=== PATIENT | female | born 1990 | race Hispanic/Latino ===

== ENCOUNTER → 2023-05-20 15:18 | Outpatient (REF) | payer OTHER, SELFPAY | LOC: PNTC 15:18 | PROVIDERS: ATTENDING PHYSICIAN Obstetrics & Gynecology | DX: Z36.0 Encounter for antenatal screening for chromosomal anomalies (principal) | CPT/HCPCS: 76801; 76813 ==

== ENCOUNTER → 2023-06-15 15:05 | Outpatient (REF) | payer OTHER, SELFPAY | LOC: PNTC 15:05 | PROVIDERS: ATTENDING PHYSICIAN Obstetrics & Gynecology | DX: O99.210 Obesity complicating pregnancy, unspecified trimester (principal) | CPT/HCPCS: 76805 ==

== ENCOUNTER → 2023-07-15 11:04 | Outpatient (REF) | payer OTHER, SELFPAY | LOC: PNTC 11:04 | PROVIDERS: ATTENDING PHYSICIAN Obstetrics & Gynecology | DX: O99.210 Obesity complicating pregnancy, unspecified trimester (principal) | CPT/HCPCS: 76811 ==

== ENCOUNTER → 2023-08-24 11:13 | Outpatient (REF) | payer OTHER, SELFPAY | LOC: PNTC 11:13 | PROVIDERS: ATTENDING PHYSICIAN Obstetrics & Gynecology | DX: O99.210 Obesity complicating pregnancy, unspecified trimester (principal); O66.0 Obstructed labor due to shoulder dystocia | CPT/HCPCS: 76816 ==

== ENCOUNTER → 2023-10-05 11:21 | Outpatient (REF) | payer OTHER, SELFPAY | LOC: PNTC 11:21 | PROVIDERS: ATTENDING PHYSICIAN Obstetrics & Gynecology | DX: O99.210 Obesity complicating pregnancy, unspecified trimester (principal); O66.0 Obstructed labor due to shoulder dystocia | CPT/HCPCS: 76816 ==

== ENCOUNTER → 2023-10-26 10:29 | Outpatient (REF) | payer OTHER, SELFPAY ==
[2023-10-26 11:16] LABS: % Basophils 0.4 % (0-2); % Eosinophils 2.4 % (0-6); % Immature Granulocytes 1.1 % (0-0.5); % Lymphocytes 22.9 % (20.5-51.1); % Monocytes 8.1 % (1.7-9.3); % Neutrophils 65.1 % (42.2-75.2); Absolute Eosinophils 0.2 10^3/uL (0-0.7); Absolute Immature Granulocytes 0.1 10^3/uL (0-0.05); Absolute Lymphocytes 1.7 10^3/uL (1.2-3.4); Absolute Monocytes 0.6 10^3/uL (0.1-0.6); Absolute Neutrophils 4.8 10^3/uL (1.4-6.5); Hematocrit 28.9 % (37.0-47.0); Hemoglobin 9.6 g/dL (12.0-16.0); Mean Corp Hgb Conc. 33.2 g/dL (33.0-37.0); Mean Corpuscular Hgb 26.8 pg (27.0-31.0); Mean Corpuscular Volume 80.7 fL (81.0-99.0); Mean Platelet Volume 10.8 fL (7.4-10.4); Nucleated Red Blood Cells % 0 %; Platelet Count 235 10^3/uL (130-400); Red Blood Cell Count 3.58 10^6/uL (4.20-5.40); Red Cell Dist. Width 13.5 % (11.5-14.5); White Blood Cell Count 7.4 10^3/uL (4.8-10.8)
== END ==
LOC: OIDL 10:29
PROVIDERS: ATTENDING PHYSICIAN Internal Medicine Hematology & Oncology
DX: D50.9 Iron deficiency anemia, unspecified (principal); D51.9 Vitamin B12 deficiency anemia, unspecified; O99.019 Anemia complicating pregnancy, unspecified trimester
CPT/HCPCS: 85025

== ENCOUNTER → 2023-10-29 08:49 | Outpatient (REF) | payer OTHER, SELFPAY ==
[2023-10-29 09:02] LABS: % Basophils 0.3 % (0-2); % Eosinophils 1.7 % (0-6); % Immature Granulocytes 1.4 % (0-0.5); % Lymphocytes 20.6 % (20.5-51.1); % Monocytes 6.5 % (1.7-9.3); % Neutrophils 69.5 % (42.2-75.2); Absolute Eosinophils 0.1 10^3/uL (0-0.7); Absolute Immature Granulocytes 0.1 10^3/uL (0-0.05); Absolute Lymphocytes 1.5 10^3/uL (1.2-3.4); Absolute Monocytes 0.5 10^3/uL (0.1-0.6); Absolute Neutrophils 4.9 10^3/uL (1.4-6.5); Hematocrit 29.5 % (37.0-47.0); Hemoglobin 9.9 g/dL (12.0-16.0); Mean Corp Hgb Conc. 33.6 g/dL (33.0-37.0); Mean Corpuscular Hgb 27.3 pg (27.0-31.0); Mean Corpuscular Volume 81.3 fL (81.0-99.0); Mean Platelet Volume 10.5 fL (7.4-10.4); Nucleated Red Blood Cells % 0 %; Platelet Count 215 10^3/uL (130-400); Red Blood Cell Count 3.63 10^6/uL (4.20-5.40); White Blood Cell Count 7.1 10^3/uL (4.8-10.8)
== END ==
LOC: OIDL 08:49
PROVIDERS: ATTENDING PHYSICIAN Internal Medicine Hematology & Oncology
DX: D50.9 Iron deficiency anemia, unspecified (principal); O99.019 Anemia complicating pregnancy, unspecified trimester; D51.9 Vitamin B12 deficiency anemia, unspecified
CPT/HCPCS: 85025

== ENCOUNTER → 2023-11-12 07:11 | Outpatient (REF) | payer OTHER, SELFPAY | LOC: PNTC 07:11 | PROVIDERS: ATTENDING PHYSICIAN Obstetrics & Gynecology | DX: O99.210 Obesity complicating pregnancy, unspecified trimester (principal); O66.0 Obstructed labor due to shoulder dystocia | CPT/HCPCS: 76816 ==

== ENCOUNTER 2023-11-20 16:49 | Inpatient (IN) | payer OTHER, SELFPAY ==
[2023-11-20] MEDS: LR 1000 IV ×2 (17:30→21:36)
[2023-11-20 17:36] LABS: % Basophils 0.3 % (0-2); % Eosinophils 1.3 % (0-6); % Immature Granulocytes 0.6 % (0-0.5); % Lymphocytes 18.5 % (20.5-51.1); % Monocytes 5.8 % (1.7-9.3); % Neutrophils 73.5 % (42.2-75.2); Absolute Eosinophils 0.1 10^3/uL (0-0.7); Absolute Lymphocytes 1.2 10^3/uL (1.2-3.4); Absolute Monocytes 0.4 10^3/uL (0.1-0.6); Absolute Neutrophils 4.7 10^3/uL (1.4-6.5); Hematocrit 33.8 % (37.0-47.0); Hemoglobin 11.7 g/dL (12.0-16.0); Mean Corp Hgb Conc. 34.6 g/dL (33.0-37.0); Mean Corpuscular Hgb 28.6 pg (27.0-31.0); Mean Corpuscular Volume 82.6 fL (81.0-99.0); Mean Platelet Volume 10.3 fL (7.4-10.4); Nucleated Red Blood Cells % 0 %; Platelet Count 181 10^3/uL (130-400); Red Blood Cell Count 4.09 10^6/uL (4.20-5.40); Red Cell Dist. Width 18.8 % (11.5-14.5); White Blood Cell Count 6.4 10^3/uL (4.8-10.8)
[2023-11-20 17:45] VITALS: BP 121/74; BMI 32.0
[2023-11-20] MEDS: CYTOTEC 25 MICROGRAM VAG (18:22)
[2023-11-20] MEDS: CYTOTEC 50 MICROGRAM PO (22:16)
[2023-11-21] MEDS: CYTOTEC 50 MICROGRAM PO (02:27)
[2023-11-21] MEDS: LR 1000 IV ×2 (03:19→06:23)
[2023-11-21] MEDS: SUBLIMAZE 100 MCG EPIDURAL (05:55)
[2023-11-21] MEDS: FENTANYL/BUPIVACAINE 100 EPIDURAL (05:56)
[2023-11-21] MEDS: CYTOTEC PO (06:36)
[2023-11-21] MEDS: MOTRIN 600 MG PO (18:38)
[2023-11-21] MEDS: TYLENOL 650 MG PO (18:38)
[2023-11-22] MEDS: MOTRIN 600 MG PO ×3 (00:53→16:52)
[2023-11-22] MEDS: TYLENOL 650 MG PO ×3 (00:53→16:51)
[2023-11-22 05:22] LABS: Hematocrit 34.5 % (37.0-47.0); Hemoglobin 11.6 g/dL (12.0-16.0)
[2023-11-22] MEDS: PRENATAL PLUS 1 TABLET PO (08:33)
[2023-11-22] MEDS: SENOKOT-S 1 TABLET PO (08:33)
[2023-11-23] MEDS: MOTRIN 600 MG PO ×2 (00:23→08:27)
[2023-11-23] MEDS: TYLENOL 650 MG PO ×2 (00:23→08:27)
[2023-11-23] MEDS: PRENATAL PLUS 1 TABLET PO (08:24)
[2023-11-24 15:22] LABS: Syphilis/T. pallidum Ab Reflex Negative (Negative)
== END 2023-11-23 12:15 | disposition home or self-care (01) | DRG 807 ==
LOC: LDRP 16:49
PROVIDERS: Obstetrics & Gynecology; ADMITTING PHYSICIAN Obstetrics & Gynecology
PROC: 4A1HXCZ Monitoring of Products of Conception, Cardiac Rate, External Approach (ICD-10-PCS; 2023-11-20)
PROC: 10E0XZZ Delivery of Products of Conception, External Approach (ICD-10-PCS; 2023-11-20)
PROC: 3E0P7VZ Introduction of Hormone into Female Reproductive, Via Natural or Artificial Opening (ICD-10-PCS; 2023-11-20)
PROC: 10907ZC Drainage of Amniotic Fluid, Therapeutic from Products of Conception, Via Natural or Artificial Opening (ICD-10-PCS; 2023-11-20)
PROC: 3E0234Z Introduction of Serum, Toxoid and Vaccine into Muscle, Percutaneous Approach (ICD-10-PCS; 2023-11-23)
DX: O36.63X0 Maternal care for excessive fetal growth, third trimester, not applicable or unspecified (principal); Z37.0 Single live birth; O64.0XX0 Obstructed labor due to incomplete rotation of fetal head, not applicable or unspecified; Z3A.39 39 weeks gestation of pregnancy; O99.214 Obesity complicating childbirth; Z23 Encounter for immunization; Z88.0 Allergy status to penicillin
CPT/HCPCS: 36415; 85014; 85018; 85025; 86780; 86850; 86900; 86901